=== PATIENT | female | born 1990 | race Caucasian/White ===

== ENCOUNTER 2022-06-25 03:55 | Inpatient (IN) | payer BC, OTHER ==
[2022-06-25] MEDS ORDERED: Carboprost Tromethamine 250 MCG/1 ML Amp IM PRN (08:08)
[2022-06-25] MEDS ORDERED: Sodium Chloride 0.9% 10 ML Syringe FLUSH PRN (08:08)
[2022-06-25] MEDS ORDERED: Ondansetron 4 MG/2 ML SDV IVPUSH PRN (08:08)
[2022-06-25] MEDS ORDERED: Tranexamic Acid 1,000 MG in Sodium Chloride 0.9% 100 ML IV PRN (08:08)
[2022-06-25] MEDS ORDERED: Acetaminophen 325 MG Tab PO PRN (08:08)
[2022-06-25] MEDS ORDERED: Misoprostol 400 MCG (4 X 100 MCG TAB) RECTAL PRN (08:08)
[2022-06-25] MEDS ORDERED: Lidocaine 1% 30 ML SDV INJECT PRN (08:08)
[2022-06-25] MEDS ORDERED: Lactated Ringers 1,000 ML IV ONE (08:08)
[2022-06-25] MEDS ORDERED: Methylergonovine 0.2 MG/1 ML Amp IM PRN (08:08)
[2022-06-25] MEDS ORDERED: Oxytocin/Normal Saline 30 UNIT/500 ML BAG IV SCH (08:15)
[2022-06-25] MEDS ORDERED: Lactated Ringers 1,000 ML IV SCH (08:15)
[2022-06-26] MEDS ORDERED: Simethicone 80 MG Tab.Chew PO PRN (01:02)
[2022-06-26] MEDS ORDERED: Sodium Chloride 0.9% 10 ML Syringe FLUSH PRN (01:02)
[2022-06-26] MEDS ORDERED: Oxytocin 10 Units/1 ML SDV IM PRN (01:02)
[2022-06-26] MEDS ORDERED: Zolpidem 5 MG Tab PO PRN (01:02)
[2022-06-26] MEDS ORDERED: Docusate Sodium 100 MG Cap PO PRN (01:02)
[2022-06-26] MEDS ORDERED: Benzocaine/Menthol 20%-0.5% Spray 78 GM Cannister TOP PRN (01:02)
[2022-06-26] MEDS ORDERED: Ibuprofen 800 MG Tab PO PRN (01:02)
[2022-06-26] MEDS: Prenatal Multivitamin with Calcium/Folic Acid/Iron Tab PO SCH (12:29)
[2022-06-26] MEDS ORDERED: Measles, Mumps & Rubella Vaccine 0.5 ML SDV SUBCUT ONE (12:47)
[2022-06-27] MEDS: Prenatal Multivitamin with Calcium/Folic Acid/Iron Tab PO SCH (08:43)
[2022-06-27 09:57] VITALS: BP 102/65; PULSE 93
== END 2022-06-27 10:15 | disposition home or self-care (01) | DRG 807 ==
LOC: DL.OBCHECK 03:55 → UNDOADMIN 08:08 → DL.OB 08:08
PROVIDERS: ADMIT Family Medicine; ATTEND Family Medicine
PROC: 10E0XZZ Delivery of Products of Conception, External Approach (ICD-10-PCS; principal; 2022-06-26)
PROC: 10907ZC Drainage of Amniotic Fluid, Therapeutic from Products of Conception, Via Natural or Artificial Opening (ICD-10-PCS; 2022-06-26)
PROC: 4A1HXCZ Monitoring of Products of Conception, Cardiac Rate, External Approach (ICD-10-PCS; 2022-06-26)
DX: O99.814 Abnormal glucose complicating childbirth (principal); Z37.0 Single live birth; O99.02 Anemia complicating childbirth; D64.9 Anemia, unspecified; Z3A.38 38 weeks gestation of pregnancy
CPT/HCPCS: 36415; 59409; 85027; 90471; 90707; A9270-GY; J2590; J7120; U0002